=== PATIENT | female | born 1945 | race African-American/Black ===

== ENCOUNTER 2018-05-17 21:05 | Emergency (ER) | payer OTHER ==
[2018-05-17] MEDS ORDERED: METHYLPREDNISOLONE INJ 125 MG/2 ML SDV IV ONE (21:45)
[2018-05-17] MEDS ORDERED: DIPHENHYDRAMINE HCL 50 MG/ML VIAL IV ONE (21:45)
[2018-05-17] MEDS ORDERED: EPINEPHRINE INJ/PF 1 MG/1 ML AMPULE IM ONE (21:45)
[2018-05-17] MEDS ORDERED: FAMOTIDINE INJ/PF 20 MG/2 ML SDV IV ONE (21:45)
--- NOTE | 2018-05-17 21:49 | ER Document Report ---
ED Allergic Reaction - General Chief Complaint: Hives Stated Complaint: SKIN PROBLEM Time Seen by Provider: 05/17/18 21:39 Notes: Patient is a 72-year-old female that comes emergency department for chief complaint of allergic reaction. She sustained ant bites just after 7, shortly after that she started breaking out in hives on her legs and arms and developed wheezing. She states she still feels short of breath and is wheezing, she tried using albuterol at home first. She has never had this kind of reaction before. Past medical history includes asthma, sleep apnea, hypertension, CAD, breast cancer. TRAVEL OUTSIDE OF THE [place] IN LAST 30 DAYS: No - Related Data Allergies/Adverse Reactions: Iodinated Contrast- Oral and IV Dye Allergy (Verified 05/17/18 21:10) Past Medical History - General Information source: Patient - Social History Smoking Status: Never Smoker Frequency of alcohol use: None Drug Abuse: None Lives with: Family Family History: Reviewed & Not Pertinent - Past Medical History Cardiac Medical History: Reports: Hx Coronary Artery Disease, Hx Hypercholesterolemia, Hx Hypertension Malignancy Medical History: Reports: Hx Breast Cancer - Immunizations Hx Diphtheria, Pertussis, Tetanus Vaccination: Yes Review of Systems - Review of Systems Constitutional: No symptoms reported EENT: No symptoms reported Cardiovascular: No symptoms reported Respiratory: See HPI Gastrointestinal: No symptoms reported Genitourinary: No symptoms reported Female Genitourinary: No symptoms reported Musculoskeletal: No symptoms reported Skin: See HPI Hematologic/Lymphatic: No symptoms reported Neurological/Psychological: No symptoms reported Physical Exam - Vital signs Vitals: Temp Pulse Resp BP Pulse Ox 98.9 F 97 22 H 160/87 H 89 L 05/17/18 21:20 05/17/18 21:20 05/17/18 21:20 05/17/18 21:20 05/17/18 21:20 - Notes Notes: GENERAL: Alert, mild tachypnea but otherwise no distress HEAD: Normocephalic, atraumatic. EYES: Pupils equal, round, and reactive to light. Extraocular movements intact. ENT: Oral mucosa moist, tongue midline. Oral pharyngeal exam unremarkable, tongue is not swollen, patent airway. NECK: Full range of motion. Supple. Trachea midline. LUNGS: Wheezing throughout with mild tachypnea, mild respiratory distress. No stridor. HEART: Regular rate and rhythm. No murmur ABDOMEN: Soft, non-tender. Non-distended. Bowel sounds present in all 4 quadrants. EXTREMITIES: Moves all 4 extremities spontaneously. No edema, normal radial and dorsalis pedis pulses bilaterally. No cyanosis. BACK: no cervical, thoracic, lumbar midline tenderness. No saddle anesthesia, normal distal neurovascular exam. NEUROLOGICAL: Alert and oriented x3. Normal speech. [cranial nerves II through XII grossly intact]. PSYCH: Normal affect, normal mood. SKIN: Faded urticarial areas over the arms, none noted of the legs, normal skin exam otherwise Course - Re-evaluation Re-evalutation: On my initial evaluation patient with mild respiratory distress, tachypnea, wheezing. She has urticarial rash after the ant bite as well. Consistent with anaphylaxis. Immediately given epinephrine, Solu-Medrol, Benadryl, Pepcid, placed on monitor. Respiratory symptoms resolved rapidly. Will reevaluate closely. Discussed with Dr. Figueredo. 05/17/18 22:05 Patient has been reevaluated and her wheezing and tachypnea have completely resolved, rash is resolved. No current symptoms. Patient will be monitored closely for recurrence of symptoms. 05/17/18 22:45 Patient reevaluated again, still asymptomatic, no return of symptoms. No current complaints. Patient has been monitored for over 2 hours, no return of symptoms, very well- appearing on reexamination, no complaints and asking to go home. Discussed anaphylaxis, treatments at home, follow-up, and strict return precautions. Patient and son at bedside state understanding and agreement with plan. - Vital Signs Vital signs: Temp Pulse Resp BP Pulse Ox 98.5 F 97 20 157/98 H 98 05/17/18 23:47 05/17/18 21:20 05/17/18 23:47 05/17/18 23:47 05/17/18 23:47 Discharge - Discharge Clinical Impression: Anaphylaxis Qualifiers: Encounter type: initial encounter Qualified Code(s): T78.2XXA - Anaphylactic shock, unspecified, initial encounter Bite, fire ant Qualifiers: Encounter type: initial encounter Injury intent: accidental or unintentional Qualified Code(s): T63.421A - Toxic effect of venom of ants, accidental ( unintentional), initial encounter Condition: Stable Disposition: HOME, SELF-CARE Additional Instructions: Your evaluation is consistent with anaphylaxis from the endpoint. Take prednisone as prescribed, take Zyrtec for 1 week. In the event of return symptoms including swelling of the face, swelling of the tongue, swelling of the throat, difficulty breathing, or any other concerning symptoms take the epinephrine and return immediately to the emergency department. Follow-up with primary care. Prescriptions: Cetirizine HCl [Zyrtec 10 mg Tablet] 1 tab PO DAILY #30 tablet Epinephrine [Epipen 2-Sanjiv] 0.3 mg IM ASDIR PRN #1 packet PRN Reason: Prednisone [Deltasone 10 mg Tablet] 10 mg PO ASDIR PRN #21 tablet PRN Reason:
[2018-05-17 23:51] VITALS: BP 157/98
== END 2018-05-17 23:51 | disposition home or self-care (01) ==
LOC: ER 21:05
DX: T63.421A Toxic effect of venom of ants, accidental (unintentional), initial encounter (principal); T78.2XXA Anaphylactic shock, unspecified, initial encounter; L50.9 Urticaria, unspecified; J45.909 Unspecified asthma, uncomplicated; R06.02 Shortness of breath; I10 Essential (primary) hypertension; I25.10 Atherosclerotic heart disease of native coronary artery without angina pectoris; Z85.3 Personal history of malignant neoplasm of breast; Z91.041 Radiographic dye allergy status
CPT/HCPCS: 99282; 96372; 96374; 96375; J1200; J0171; J2930; S0028